=== PATIENT | female | born 1985 | race Caucasian/White ===

== ENCOUNTER 2021-10-02 09:54 | Emergency (ER) | payer OTHER ==
[~2021-10-02] VITALS: Ht 167.6 cm; Wt 63.5 kg
[2021-10-02 09:55] VITALS: BP 150/85
== END 2021-10-02 10:19 | disposition home or self-care (01) ==
LOC: EDBD 09:54 → M.ERS 09:54
DX: R41.82 Altered mental status, unspecified (principal)